=== PATIENT | male | born 1955 | race Caucasian/White ===

== ENCOUNTER 2018-01-21 08:35 | Emergency (ER) | payer OTHER ==
[2018-01-21 08:41] VITALS: BP 151/80
--- NOTE | 2018-01-21 09:06 | ER Document Report ---
HPI - HPI Patient complains to provider of: Right foot pain Onset: Yesterday - After moving furniture Onset/Duration: Gradual Pain Level: 5 Context: 62-year-old diabetic male did not injure his right foot but is complaining of foot pain dorsal lateral right foot. He has to walk on his heel. It started yesterday after moving furniture and it is worse today. Associated Symptoms: None Exacerbated by: Walking Relieved by: Denies Similar symptoms previously: No Recently seen / treated by doctor: No - ROS ROS below otherwise negative: Yes Systems Reviewed and Negative: Yes All other systems reviewed and negative - MUSCULOSKELETAL Musculoskeletal: REPORTS: Extremity pain Past Medical History - General Information source: Patient - Social History Smoking Status: Never Smoker Chew tobacco use (# tins/day): No Frequency of alcohol use: None Drug Abuse: None Lives with: Family Family History: Reviewed & Not Pertinent Patient has suicidal ideation: No Patient has homicidal ideation: No - Past Medical History Cardiac Medical History: Reports: Hx Hypercholesterolemia, Hx Hypertension Endocrine Medical History: Reports: Hx Diabetes Mellitus Type 2 Renal/ Medical History: Denies: Hx Peritoneal Dialysis Musculoskeletal Medical History: Reports Hx Arthritis - KYRA ANKLES Past Surgical History: Reports: Hx Orthopedic Surgery - ANKLE - Immunizations Hx Diphtheria, Pertussis, Tetanus Vaccination: Yes Hx Pneumococcal Vaccination: 03/19/14 Vertical Provider Document - CONSTITUTIONAL Agree With Documented VS: Yes Exam Limitations: No Limitations - INFECTION CONTROL TRAVEL OUTSIDE OF THE [place] IN LAST 30 DAYS: No - MUSCULOSKELETAL/EXTREMETIES Musculoskeletal/Extremeties: MAEW, FROM, Tender - Base of the fifth metatarsal, No Edema. negative: Eccymosis Notes: 2+ DP - NEURO Level of Consciousness: Awake, Alert - DERM Integumentary: No Rash Course - Re-evaluation Re-evalutation: 01/21/18 09:54 Degenerative changes on x-ray per radiologist patient wants an Fermin bandage but no prescription for Motrin and he does not want crutches because he has a cane at home. He can follow-up with the operator catalyst concentration and he understands these instructions and agrees - Vital Signs Vital signs: Temp Pulse Resp BP Pulse Ox 98.0 F 73 18 151/80 H 96 01/21/18 08:40 01/21/18 08:40 01/21/18 08:40 01/21/18 08:40 01/21/18 08:40 Discharge - Discharge Clinical Impression: Arthritis of foot Condition: Good Disposition: HOME, SELF-CARE Instructions: Arthritis (OM), Fermin Wrap ([facility]), Acetaminophen, Ibuprofen ( General) ([facility]) Additional Instructions: Fermin wrap for comfort Tylenol up to 4000 mg a day Motrin for inflammation with food See the operator catalyst concentration for follow-up Referrals: JOANIE HERNANDEZ DPM [ACTIVE STAFF] - Follow up as needed YESSICA HOUSE DPM [ACTIVE STAFF] - Follow up as needed
--- NOTE | 2018-01-21 09:35 | RADIOLOGY REPORT (SQ) ---
EXAM DESCRIPTION: FOOT RIGHT COMPLETE COMPLETED DATE/TIME: 01/21/2018 9:16 am REASON FOR STUDY: right foot pain COMPARISON: None. NUMBER OF VIEWS: Three views. TECHNIQUE: AP, lateral and oblique radiographic images acquired of the right foot. LIMITATIONS: None. FINDINGS: MINERALIZATION: Normal. BONES: There is evidence of calcification of the distal Achilles tendon which could represent chronic calcific tendinopathy. Degenerative change at the 1st metatarsal-phalangeal joint. Degenerative ch braden at the talonavicular joint. JOINTS: No effusions. SOFT TISSUES: No soft tissue swelling. No foreign body. OTHER: No other significant finding. IMPRESSION: Degenerative changes. Chronic calcific tendinopathy Achilles tendon not excluded. TECHNICAL DOCUMENTATION: JOB ID: [id number] [employer]- All Rights Reserved Reading location - IP/workstation name: [email or web address]
== END 2018-01-21 10:07 | disposition home or self-care (01) ==
LOC: ER 08:35
DX: M19.079 Primary osteoarthritis, unspecified ankle and foot (principal); M79.671 Pain in right foot; E11.9 Type 2 diabetes mellitus without complications; I10 Essential (primary) hypertension
CPT/HCPCS: 99283